=== PATIENT | female | born 1965 | race Caucasian/White ===

== ENCOUNTER → 2021-12-20 | Outpatient (CLI) | payer OTHER | LOC: MRI 07:50 | DX: C53.0 Malignant neoplasm of endocervix (principal); R55 Syncope and collapse; R93.7 Abnormal findings on diagnostic imaging of other parts of musculoskeletal system | CPT/HCPCS: 70553; 78306; A9503; A9577 ==

== ENCOUNTER → 2022-01-22 | Outpatient (CLI) | payer OTHER | LOC: NM 09:10 | DX: C53.0 Malignant neoplasm of endocervix (principal) | CPT/HCPCS: 78306; A9503 ==

== ENCOUNTER → 2022-01-24 | Outpatient (CLI) | payer OTHER | LOC: CT 11:00 | DX: C53.0 Malignant neoplasm of endocervix (principal); K59.00 Constipation, unspecified | CPT/HCPCS: Q9967 ==